=== PATIENT | male | born 1990 | race African-American/Black ===

== ENCOUNTER 2019-01-16 19:58 | Emergency (ER) | payer OTHER ==
--- NOTE | 2019-01-16 20:36 | PDOC ---
Rapid Medical Evaluation Time Seen by Provider: 01/16/19 20:33 Medical Evaluation: Allergies Allergy/AdvReac Type Severity Reaction Status Date / Time No Known Allergies Allergy Verified 11/05/16 06:12 01/16/19 20:33 I have performed a brief in-person evaluation of this patient. The patient presents with a chief complaint of: sore throat x1 week Pertinent physical exam findings: OP erythematous. No lesions or exudate present. I have ordered the following: rapid strep, motrin, decadron The patient will proceed to the ED for further evaluation. Discharge Disposition - Diagnosis Pharyngitis - Referrals - Patient Instructions - Post Discharge Activity
[2019-01-16] MEDS ORDERED: DEXAMETHASONE LIQUID 0.5 MG/5 ML 240 ML BULK BOTTLE PO ONE (20:37)
[2019-01-16] MEDS ORDERED: IBUPROFEN 600 MG TABLET (FP) PO ONE ×2 (20:37→20:54)
[2019-01-16 20:38] VITALS: BP 134/84; PULSE 65; TEMP 98.2; BMI 33.9
[2019-01-16] MEDS ORDERED: DEXAMETHASONE SOD PHOSPHATE 10 MG/1 ML VIAL ONE (20:54)
--- NOTE | 2019-01-16 21:05 | PDOC ---
History of Present Illness - General Chief Complaint: Sore Throat Stated Complaint: SORE THROAT Time Seen by Provider: 01/16/19 20:33 - History of Present Illness Initial Comments: 01/16/19 21:05 29-year-old male without comorbidities presents for evaluation of fever and sore throat 5 days. He states he had a fever 2 nights ago it has since resolved. Sore throat waxes and wanes. Past History - Past Medical History Allergies/Adverse Reactions: Allergies Allergy/AdvReac Type Severity Reaction Status Date / Time No Known Allergies Allergy Verified 01/16/19 20:35 Home Medications: Ambulatory Orders NK [No Known Home Medication] 01/16/19 COPD: No Other medical history: Pt denies - Suicide/Smoking/Psychosocial Hx Smoking Status: No Smoking History: Never smoked Have you smoked in the past 12 months: No Number of Cigarettes Smoked Daily: 0 Information on smoking cessation initiated: No Hx Alcohol Use: No Drug/Substance Use Hx: No Substance Use Type: None Review of Systems - Review of Systems Constitutional: Yes: Fever HEENTM: Yes: Throat Pain, Difficulty Swallowing *Physical Exam - Vital Signs Last Vital Signs Temp Pulse Resp BP Pulse Ox 98.2 F 65 18 134/84 98 01/16/19 20:36 01/16/19 20:36 01/16/19 20:36 01/16/19 20:36 01/16/19 20:36 - Physical Exam Comments: 01/16/19 21:05 HEAD: NC/AT EYES: Conjuntiva clear Ears: Canals and TM's normal NOSE: No d/c THROAT: Moist mucous membrances, oral pharanx clear, uvula midline NECK: Supple without adenopathy CARDIAC: S1 S2 LUNGS: CTA Full and Equal breath sounds ABDOMEN: Soft NT ND MS: Full ROM in all joints without edema NEUROLOGIC: No gross sensory or motor deficits, NVID SKIN: Normal color and temperature no lesions or rashes ED Treatment Course - Medications Given in the ED: ED Medications Discontinued Medications Generic Name Dose Route Start Last Admin Trade Name Freq PRN Reason Stop Dose Admin Dexamethasone 10 mg 01/16/19 20:37 01/16/19 21:00 Decadron Liquid - PO 01/16/19 20:38 1 ml ONCE ONE Administration Ibuprofen 600 mg 01/16/19 20:37 01/16/19 21:00 Motrin - PO 01/16/19 20:38 600 mg ONCE ONE Administration Medical Decision Making - Medical Decision Making 01/16/19 22:02 viral pharingitis, cx sent, no abx for now *DC/Admit/Observation/Transfer Diagnosis at time of Disposition: Pharyngitis, Viral pharyngitis - Discharge Dispostion Disposition: HOME Condition at time of disposition: Stable Decision to Admit order: No - Referrals Referrals: [facility] [Non Staff, Medical] - - Patient Instructions Printed Discharge Instructions: Viral Pharyngitis, DI for Viral Pharyngitis Additional Instructions: Your strep test was negative. However a culture was sent should you require antibiotics we will call you. Return to the emergency room for worsening symptoms. Tylenol and Motrin for pain and discomfort. Follow-up with internal medicine in one to 2 days for further evaluation and treatment options. - Post Discharge Activity
== END 2019-01-16 22:19 | disposition home or self-care (01) ==
LOC: JERFT 19:58
DX: J02.0 Streptococcal pharyngitis (principal); B97.89 Other viral agents as the cause of diseases classified elsewhere
CPT/HCPCS: 87070; 87077; 87880; 99281-25